=== PATIENT | female | born 1980 | race Caucasian/White ===

== ENCOUNTER 2023-08-16 17:57 | Emergency (ER) | payer OTHER ==
[~2023-08-16] VITALS: Ht 165.1 cm; Wt 54.4 kg
[2023-08-16 18:01] VITALS: BP 139/81; PULSE 107; RESP 16; TEMP 98.1; O2SAT 100
[2023-08-16 18:15] VITALS: TEMP 98.1
[2023-08-16] MEDS ORDERED: ONDANSETRON 4 MG/2 ML VIAL IVP ONE (18:25)
[2023-08-16] MEDS ORDERED: MORPHINE SULFATE 4 MG/ML SYR IVP ONE (18:25)
[2023-08-16 19:40] VITALS: BP 121/80; PULSE 89; RESP 13; O2SAT 99
[2023-08-16] MEDS ORDERED: IBUP-2213 PO (20:59)
[2023-08-16] MEDS ORDERED: LID5T TP (20:59)
[2023-08-16] MEDS ORDERED: ACET-10509 PO (20:59)
== END 2023-08-16 21:12 | disposition home or self-care (01) ==
LOC: MED 17:57
DX: S20.212A Contusion of left front wall of thorax, initial encounter (principal); N28.1 Cyst of kidney, acquired; N20.0 Calculus of kidney; Z79.899 Other long term (current) drug therapy; Z79.1 Long term (current) use of non-steroidal anti-inflammatories (NSAID); V89.2XXA Person injured in unspecified motor-vehicle accident, traffic, initial encounter; Y93.89 Activity, other specified; Y92.410 Unspecified street and highway as the place of occurrence of the external cause; Y99.8 Other external cause status
CPT/HCPCS: 71260; 81025; 93005; 96374; 96375; 99285; J2270; J2405; Q9967